=== PATIENT | male | born 1975 | race Caucasian/White ===

== ENCOUNTER 2018-02-11 08:17 | Inpatient (IN) ==
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
[2018-02-11 09:00] LABS: Baso # (Auto) 0.1 th/mm3 (0.0-0.2); Baso % (Auto) 0.8 % (0.0-2.0); Eos % (Auto) 0.1 % (0.0-4.0); Hematocrit 43.3 % (39.0-51.0); Hemoglobin 14.2 gm/dL (13.0-17.0); Lymph # (Auto) 1.4 th/mm3 (1.0-4.8); Mean Corpuscular HGB Conc 32.9 % (32.0-36.0); Mean Corpuscular Hemoglobin 29.7 pg (27.0-34.0); Mean Corpuscular Volume 90.3 fL (80.0-100.0); Mean Platelet Volume 8.9 fL (7.0-11.0); Mono # (Auto) 0.8 th/mm3 (0.0-0.9); Mono % (Auto) 6.9 % (0.0-8.0); Neut # (Auto) 8.8 th/mm3 (1.8-7.7); Neut % (Auto) 79.2 % (16.0-70.0); Platelet Count 228 th/mm3 (150-450); Red Blood Count 4.79 mil/mm3 (4.50-5.90); Red Cell Distribution Width 13.9 % (11.6-17.2); White Blood Count 11.1 th/mm3 (4.0-11.0)
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
[2018-02-11 09:09] LABS: Prothrombin Time 10.3 sec (9.8-11.6)
[2018-02-11 09:25] LABS: Alanine Aminotransferase 30 U/L (12-78); Anion Gap 10 meq/L (5-15); Aspartate Aminotransferase 33 U/L (15-37); Blood Urea Nitrogen 8 mg/dL (7-18); Calcium 8.6 mg/dL (8.5-10.1); Carbon Dioxide 24.7 meq/L (21.0-32.0); Chloride 109 meq/L (98-107); Glomerular Filtration Rate 76 mL/min (>89); Glucose,Random 108 mg/dL (74-106); Potassium 3.5 meq/L (3.5-5.1); Sodium 144 meq/L (136-145)
[2018-02-11 09:28] LABS: Alkaline Phosphatase 85 U/L (45-117); Total Protein 8.3 g/dL (6.4-8.2)
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
[2018-02-11] MEDS ORDERED: Butalbital/APAP/Caff 50/325/40 MG Tablet PO ONE (09:54)
[2018-02-11] MEDS ORDERED: HYDROmorphone PF Inj 1 MG/ML Ampul IV.PUSH PRN (10:18)
[2018-02-11] MEDS ORDERED: HYDROmorphone PF Inj 2 MG/ML Vial IV.PUSH PRN (10:30)
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
--- NOTE | 2018-02-11 11:51 | ECG ---
Date Performed: 02/11/2018 Time Performed: 08:37:10 PTAGE: 42 years EKG: Sinus rhythm ST ELEVATION, PROBABLY EARLY REPOLARIZATION BORDERLINE ECG NO PREVIOUS TRACING DOCTOR: Kit Morales Interpretating Date/Time 02/11/2018 11:50:16
[2018-02-11] MEDS: Pantoprazole Inj 40 MG Vial IV.PUSH SCH (17:25)
[2018-02-11] MEDS: Multivitamin Inj 10 ML, Thiamine Inj 100 MG, Folic Acid Inj 1 MG in Sodium Chlor 0.9% I... IV.SIG SCH (17:25)
[2018-02-11] MEDS: Docusate Sodium 100 MG Capsule PO SCH ×2 (17:27→20:55)
[2018-02-11] MEDS: Sod Chloride 0.9% Inj 1,000 ML IV.CONT SCH (17:28)
[2018-02-11 22:20] VITALS: RESP 18
[2018-02-12] MEDS: Sod Chloride 0.9% Inj 1,000 ML IV.CONT SCH ×2 (00:03→07:32)
[2018-02-12] MEDS ORDERED: Chlorhexidine Gluconate 2% 1 Pack (2 Cloths) TOPICAL SCH (04:00)
[2018-02-12] MEDS ORDERED: Chlorhexidine Gluconate 2% 1 Pack (2 Cloths) TOPICAL PRN (04:00)
[2018-02-12 04:54] LABS: Baso # (Auto) 0.1 th/mm3 (0.0-0.2); Eos # (Auto) 0.4 th/mm3 (0.0-0.4); Eos % (Auto) 4.4 % (0.0-4.0); Hematocrit 42.2 % (39.0-51.0); Hemoglobin 14.5 gm/dL (13.0-17.0); Lymph # (Auto) 2.9 th/mm3 (1.0-4.8); Lymph % (Auto) 33.1 % (9.0-44.0); Mean Corpuscular HGB Conc 34.5 % (32.0-36.0); Mean Corpuscular Hemoglobin 30.6 pg (27.0-34.0); Mean Corpuscular Volume 88.8 fL (80.0-100.0); Mean Platelet Volume 9.2 fL (7.0-11.0); Mono # (Auto) 0.8 th/mm3 (0.0-0.9); Mono % (Auto) 8.9 % (0.0-8.0); Neut # (Auto) 4.6 th/mm3 (1.8-7.7); Neut % (Auto) 52.6 % (16.0-70.0); Platelet Count 219 th/mm3 (150-450); Red Blood Count 4.75 mil/mm3 (4.50-5.90); White Blood Count 8.8 th/mm3 (4.0-11.0)
[2018-02-12 05:06] LABS: Calcium 8.8 mg/dL (8.5-10.1); Carbon Dioxide 27.1 meq/L (21.0-32.0); Potassium 3.8 meq/L (3.5-5.1)
[2018-02-12] MEDS: Docusate Sodium 100 MG Capsule PO SCH (09:11)
[2018-02-12] MEDS: Pantoprazole Inj 40 MG Vial IV.PUSH SCH (10:18)
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
[2018-02-12 12:27] VITALS: BP 155/89; PULSE 66; TEMP 97.6; O2SAT 98
[2018-02-12] MEDS: Multivitamin Inj 10 ML, Thiamine Inj 100 MG, Folic Acid Inj 1 MG in Sodium Chlor 0.9% I... IV.SIG SCH (13:24)
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
== END 2018-02-12 15:16 | disposition home or self-care (01) ==
LOC: NEPC 08:17 → NEDA 08:17 → N06 11:05
PROVIDERS: ADMIT Surgery; ATTEND Surgery